=== PATIENT | female | born 1995 | race Caucasian/White ===

== ENCOUNTER 2019-10-20 08:38 | Emergency (ER) | payer OTHER ==
[~2019-10-20] VITALS: Ht 167.6 cm; Wt 80.0 kg
[2019-10-20 08:45] VITALS: BP 138/93
[2019-10-20] MEDS ORDERED: ketorolac tromethamine 15mg/ml inj. IM ONE (10:05)
== END 2019-10-20 10:15 | disposition home or self-care (01) ==
LOC: ER 08:39
DX: S29.012A Strain of muscle and tendon of back wall of thorax, initial encounter (principal); Z88.0 Allergy status to penicillin; X50.1XXA Overexertion from prolonged static or awkward postures, initial encounter; Y93.89 Activity, other specified; Y92.89 Other specified places as the place of occurrence of the external cause; Y99.9 Unspecified external cause status
CPT/HCPCS: 99281; J1885